=== PATIENT | female | born 1945 | race Caucasian/White ===

== ENCOUNTER → 2019-02-21 15:52 | Outpatient (CLI) | payer MEDICARE, SELFPAY ==
[2019-02-21 16:53] LABS: Add Manual Diff / Slide Review NO; Basophils Absolute Auto 0 /uL (0-100); Basophils Percent Auto 0.6 % (0-2); Eosinophils Absolute Auto 100 /uL (0-450); Eosinophils Percent Auto 0.7 % (2-4); Hematocrit 39.5 % (36-46); Hemoglobin 13.2 g/dL (12.0-16.0); Lymphocytes Absolute Auto 2200 /uL (1100-4500); Lymphocytes Percent Auto 29.6 % (25-40); Mean Corpuscular HGB Conc 33.5 % (30-36); Mean Corpuscular Hemoglobin 30.6 PG (26-34); Mean Corpuscular Volume 91.4 fL (80-100); Monocytes Absolute Auto 400 /uL (0-900); Monocytes Percent Auto 5.3 % (3-14); Neutrophils Absolute Auto 4600 /uL (1500-7000); Neutrophils Percent Auto 63.8 % (50-75); Platelet Count 200 X10^3/uL (150-400); Red Blood Cell Count 4.32 X10^6/uL (4.0-5.2); Red Cell Distribution Width 13.4 % (11.6-14.8); White Blood Cell Count 7.3 X10^3/uL (4.5-11.0)
[2019-02-21 17:27] LABS: Alanine Aminotransferase 24 IU/L (9-52); Albumin 4.4 g/dL (3.5-5.0); Albumin Globulin Ratio 1.6 (1.0-2.8); Alkaline Phosphatase 67 U/L (38-126); Aspartate Aminotransferase 27 IU/L (14-36); Bilirubin Total 0.4 mg/dL (0.2-1.3); Bilirubin Unconjugated 0.3 mg/dL (0.0-1.1); Globulin 2.7 g/dL (1.7-4.1); HEMOLYSIS < 15 (0-50); Total Protein 7.1 g/dL (6.3-8.2)
== END ==
PROVIDERS: Visit Provider Podiatrist
DX: B35.1 Tinea unguium (principal)
CPT/HCPCS: 36415; 80076; 85025

== ENCOUNTER 2024-12-31 14:56 | Emergency (ER) | payer MEDICARE, SELFPAY ==
[2024-12-31] VITALS (10 sets, daily range): BP systolic 106–134; BP diastolic 55–63; PULSE 66–74; RESP 16; TEMP 36.6–36.9; O2SAT 92–96; BMI 28.3
[2024-12-31 15:18] LABS: Appearance Urine UA CLOUDY
[2024-12-31 15:19] LABS: Color Urine UA ORANGE
[2024-12-31 15:23] LABS: Culture Indicated Urine Specimen Cultured
--- NOTE | 2024-12-31 15:25 | ED.FEMALEGU ---
HPI - Female Genitourinary General Chief complaint: Urogenital-Female Stated complaint: fever, UTI Time Seen by Provider: 12/31/24 15:04 History of Present Illness HPI Narrative: 79-year-old female with urinary symptoms that have been going on for 2+ weeks. Patient was told to come in by her PCP. The patient was initiated on Bactrim initially without any urine sample. The Bactrim was mixed with her allergy pills and so the timing of the medication was inaccurate. She then had a urine sample done which did show an E coli picture but is still waiting on the full culture. She was then started on cefdinir and has been on it for the last 2-3 days. Currently the patient feels some chills but has no urinary symptoms and no other symptoms. Related Data Home Medications ?Medication ?Instructions ?Recorded ?Confirmed estradiol 10 mcg vaginal tablet 10 mcg vaginal .COMPLEX 11/09/19 01/17/20 (Yuvafem) levothyroxine 50 mcg tablet 50 mcg PO DAILY 11/09/19 01/17/20 (Levoxyl) raloxifene 60 mg tablet 60 mg PO DAILY 11/09/19 01/17/20 rosuvastatin 5 mg tablet 5 mg PO DAILY 11/09/19 01/17/20 sertraline 100 mg tablet (Zoloft) 100 mg PO DAILY 11/09/19 01/17/20 valacyclovir 500 mg tablet See Rx Instructions PO DAILY 11/09/19 01/17/20 zolpidem 10 mg tablet (Ambien) 10 mg PO BEDTIME PRN insomnia 11/09/19 01/17/20 aspirin 81 mg tablet,delayed 81 mg PO DAILY 11/20/19 01/17/20 release docusate sodium 250 mg capsule 500 mg PO BEDTIME 01/17/20 01/17/20 esomeprazole magnesium 20 mg 20 mg PO BID 01/17/20 01/17/20 capsule,delayed release (Nexium) primidone 50 mg tablet 50 mg PO BID 01/17/20 01/17/20 vit C 250 mg-vit E 90 mg-zinc 40 1 tab PO BID 01/17/20 01/17/20 mg-copper 1 [id number] capsule (PreserVision AREDS-2) Allergies Allergy/AdvReac Type Severity Reaction Status Date / Time cephalexin (From KEFLEX) Allergy Unknown Unverified 01/17/20 11:24 ciprofloxacin (From CIPRO) Allergy Unknown Unverified 01/17/20 11:24 codeine (CODEINE) Allergy Unknown Unverified 01/17/20 11:24 Review of Systems Review of Systems ROS Unobtainable: All systems reviewed & are unremarkable except as noted in HPI and below Patient History Medical History (Updated 12/31/24 @ 17:33 by Prashanth Taveras MD) Chronic pain of right thumb Shingles Seasonal allergies Teixeira esophagus Reflux esophagitis Constipation Thyroid nodule Bladder cancer (~2018) Mild coronary artery disease (~04/2015) Hyperparathyroidism Hypothyroid Hyperlipidemia UTI (urinary tract infection) Surgical History (Updated 11/20/19 @ 11:42 by June Garibay DO) History of bunionectomy History of parathyroidectomy (~2010) Family History (Updated 11/20/19 @ 11:44 by June Garibay DO) Grandmother Breast cancer Mother Breast cancer Family/Other Breast cancer Family/Other Breast cancer Exam Narrative Exam Narrative: General: Patient appears to be in no acute distress, acting appropriately Head: normocephalic, atraumatic, HEENT: Pupils equal round reactive, eyes tracking well, neck supple, no JVD Heart: regular rate and rhythm, no murmurs, rubs, or gallops heard Lungs: clear to auscultation, no adventitious sounds Abdomen: soft , nontender, nondistended, positive bowel sounds Neurological: no focal neurological signs, moving all extremities well, alert and oriented x3, Psych: good judgment ,good insight, mood is normal. Initial Vital Signs Initial Vital Signs: Vital Signs Pulse Rate 74 12/31/24 15:03 Pulse Oximetry 94 12/31/24 15:03 Course Orders Ordered: ED Orders 12/31/24 15:12 Urinalysis and Microscopic Stat Urine Culture Stat 12/31/24 15:53 Blood Culture Stat 12/31/24 15:55 BMP [Basic Metabolic Panel] Stat CBC Auto Diff [Complete Blood Count AUTO DIFF] Stat Discontinued Medications Piperacillin Sod/Tazobactam (Sod 4.5 gm/ Sodium Chloride) 100 mls @ 200 mls/hr IV NOW ONE Stop: 12/31/24 15:54 Last Infusion: 12/31/24 17:06 Dose: Infused Sodium Chloride (Normal Saline 0.9%) 1,000 mls @ 1,000 mls/hr IV BOLUS ONE Stop: 12/31/24 16:54 Last Infusion: 12/31/24 17:26 Dose: Infused Reevaluation(s) Reevaluation #1: Patient continues to be comfortable, asymptomatic. Vital Signs Vital signs: Vital Signs - 8 hr 12/31/24 15:03 12/31/24 15:08 12/31/24 15:57 Temperature 98.4 F Pulse Rate 74 73 70 Respiratory Rate 16 Blood Pressure 117/57 L Pulse Oximetry 94 94 92 Oxygen Delivery Method Room Air 12/31/24 15:58 12/31/24 15:58 12/31/24 16:00 Temperature 98.5 F Pulse Rate 69 69 Respiratory Rate Blood Pressure 120/55 L Pulse Oximetry 93 93 Oxygen Delivery Method 12/31/24 16:00 12/31/24 16:33 12/31/24 16:33 Temperature Pulse Rate 66 Respiratory Rate Blood Pressure 106/55 L 115/58 L Pulse Oximetry 92 Oxygen Delivery Method 12/31/24 17:00 12/31/24 17:00 Temperature Pulse Rate 70 Respiratory Rate Blood Pressure 110/57 L Pulse Oximetry 95 Oxygen Delivery Method MDM - Female Genitourinary Differential Diagnosis Differential diagnosis: Likely urinary tract infection, cervicitis and vaginitis Lab Data 12/31/24 15:55 12/31/24 15:55 Labs: Lab Results 12/31/24 12/31/24 Range/Units 15:12 15:55 WBC 8.3 (4.5-11.0) X10^3/uL RBC 3.38 L (4.0-5.2) X10^6/uL Hgb 11.0 L (12.0-16.0) g/dL Hct 31.8 L (36-46) % MCV 94.1 (80-100) fL MCH 32.5 (26-34) PG MCHC 34.5 (30-36) % RDW 12.4 (11.6-14.8) % Plt Count 187 (150-400) X10^3/uL Neut % (Auto) 81.6 H (50-75) % Lymph % (Auto) 7.1 L (25-40) % [place] % (Auto) 10.6 (3-14) % Eos % (Auto) 0.3 L (2-4) % Baso % (Auto) 0.4 (0-2) % Neut # (Auto) 6800 (5689-7263) /uL Lymph # (Auto) 600 L (4142-1877) /uL [place] # (Auto) 900 (0-900) /uL Eos # (Auto) 0 (0-450) /uL Baso # (Auto) 0 (0-100) /uL Sodium 134 L (137-145) mmol/L Potassium 4.1 (3.4-5.1) mmol/L Chloride 104 (98-107) mmol/L Carbon Dioxide 23 (22-32) mmol/L BUN 15 (7-17) mg/dL Creatinine 0.69 (0.52-1.04) mg/dL Estimated GFR > 60 (>60) mL/min BUN/Creatinine Ratio 21.7 (6-22) Glucose 107 H (70-99) mg/dL Calcium 8.6 (8.4-10.2) mg/dL Urine Color [place] Urine Appearance Cloudy Urine pH TNP Ur Specific [place] TNP Urine Protein TNP Urine Glucose (UA) TNP Urine Ketones TNP Urine Occult Blood TNP Urine Nitrate TNP Urine Bilirubin TNP Urine Urobilinogen TNP Ur Leukocyte Esterase TNP Urine RBC 0-1/hpf (0-5/HPF) Urine WBC 30-100/hpf H (0-5/HPF) Ur Squamous Epith Cells 5-10 /hpf H (0-5/HPF) Urine Bacteria Many (>30) H (None) Ur Culture Indicated? Specimen cultured Vol Urine Centrifuged 10ml (spun) MDM Narrative Medical decision making narrative: The patient has been asymptomatic during her course here at the ED. we will wait for urine and blood cultures and follow up on them. Patient given a dose of Zosyn here in the ED. Advised to continue with her cefdinir until cultures return. Discharge Plan Departure Patient Disposition: Home Clinical Impression: UTI (urinary tract infection) Qualifiers: Urinary tract infection type: acute cystitis Hematuria presence: without hematuria Qualified Code(s): N30.00 - Acute cystitis without hematuria Instructions: DI for Urinary Tract Infection (UTI) Activity Restrictions/Additional Instructions: Continue with cefdinir and follow up with PCP. Follow up with urine and blood cultures from here in the ED. Prescriptions: No Action levothyroxine [Levoxyl] 50 mcg tablet 50 mcg PO DAILY sertraline [Zoloft] 100 mg tablet 100 mg PO DAILY rosuvastatin 5 mg tablet 5 mg PO DAILY raloxifene 60 mg tablet 60 mg PO DAILY estradiol [Yuvafem] 10 mcg tablet 10 mcg VAG .COMPLEX Rx Instructions: 1 tab M, W, F. zolpidem [Ambien] 10 mg tablet 10 mg PO BEDTIME PRN (Reason: insomnia) valacyclovir 500 mg tablet See Rx Instructions PO DAILY Rx Instructions: Take 3 tabs as needed for shingles. PO daily; aspirin 81 mg tablet,delayed release (DR/EC) 81 mg PO DAILY primidone 50 mg tablet 50 mg PO BID Rx Instructions: 25 mg in the AM and 50 mg at bedtime docusate sodium 250 mg capsule 500 mg PO BEDTIME esomeprazole magnesium [Nexium] 20 mg capsule,delayed release(DR/EC) 20 mg PO BID PreserVision AREDS-2 [id number] [id number]-mg capsule 1 tab PO BID Rx Instructions: administer with meals Referrals: June Garibay DO [Primary Care Provider, Family Practice] Stand Alone Forms: Patient Portal/API
[2024-12-31 16:06] LABS: Add Manual Diff / Slide Review NO; Hematocrit 31.8 % (36-46); Hemoglobin 11.0 g/dL (12.0-16.0); Lymphocytes Absolute Auto 600 /uL (1100-4500); Mean Corpuscular HGB Conc 34.5 % (30-36); Mean Corpuscular Hemoglobin 32.5 PG (26-34); Mean Corpuscular Volume 94.1 fL (80-100); Platelet Count 187 X10^3/uL (150-400)
[2024-12-31 16:15] LABS: Blood Urea Nitrogen 15 mg/dL (7-17); Calcium 8.6 mg/dL (8.4-10.2); Carbon Dioxide 23 mmol/L (22-32); Chloride 104 mmol/L (98-107); Estimated Glomerular Filt Rate > 60 mL/min (>60); Glucose 107 mg/dL (70-99); HEMOLYSIS < 15 (0-50); Potassium 4.1 mmol/L (3.4-5.1); Sodium 134 mmol/L (137-145)
[2024-12-31] MEDS: PIPERACILLIN/TAZO 4.5 GM in SODIUM CHLORIDE 0.9% 100 ML IV (16:29)
[2024-12-31] MEDS: SODIUM CHLORIDE 0.9% 1,000 ML 1000 ML IV (16:30)
== END 2024-12-31 17:51 | disposition home or self-care (01) ==
PROVIDERS: Emergency Provider Family Medicine; PCP Family Medicine
DX: N30.00 Acute cystitis without hematuria (principal)
CPT/HCPCS: 80048; 81001; 85025; 87040; 87086; 96365; 99283; 99284; J2543

== ENCOUNTER 2025-01-01 11:17 | Emergency (ER) | payer MEDICARE, SELFPAY ==
[2025-01-01 11:21] VITALS: BP 152/64; PULSE 69; RESP 14; TEMP 36.4; O2SAT 96; BMI 28.3
--- NOTE | 2025-01-01 12:55 | ED_ITS ---
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 De Leon is a pleasant 79-year-old female with a past medical history of bladder cancer 6 years ago, hypothyroidism, hyperlipidemia who presents to the emergency department for IV antibiotics for outpatient gram-negative UTI since December 12. Patient was seen in the ED yesterday after being sent by her PCP for Gram-negative urine cultures not improving with oral antibiotics. She received IV Zosyn. She returns today for an additional dose of IV Zosyn while blood and urine cultures are pending. She feels well, reports chills during urination but no abdominal pain, nausea, vomiting, fevers. She initially was treated with Bactrim over 2 weeks ago without a urine culture at that time however the antibiotics were mixed up with antivirals so they were not taken exactly as directed. She was switched to cefdinir 2 or 3 days ago and is continuing to take this while also receiving IV Zosyn both yesterday and now today. She has no other concerns today. Related Data Home Medications ?Medication ?Instructions ?Recorded ?Confirmed estradiol 10 mcg vaginal tablet 10 mcg vaginal .COMPLE X 11/09/19 01/17/20 (Yuvafem) levothyroxine 50 mcg tablet 50 mcg PO DAILY 11/09/19 0 01/17/20 (Levoxyl) raloxifene 60 mg tablet 60 mg PO DAILY 11/09/1910/02 rosuvastatin 5 mg tablet 5 mg PO DAILY 11/09/1901/16 sertraline 100 mg tablet (Zoloft) 100 mg PO DAILY 10/1401/17/20 valacyclovir 500 mg tablet See Rx Instructions PO JOSEPH Y 11/09/19 01/17/20 zolpidem 10 mg tablet (Ambien) 10 mg PO BEDTIME PRN in somnia 11/09/19 01/17/20 aspirin 81 mg tablet,delayed 81 mg PO DAILY 11/20/19 0 01/17/20 release docusate sodium 250 mg capsule 500 mg PO BEDTIME 01/1601/17/20 esomeprazole magnesium 20 mg 20 mg PO BID 01/17/2010/02 capsule,delayed release (Nexium) primidone 50 mg tablet 50 mg PO BID 01/17/20 vit C 250 mg-vit E 90 mg-zinc 40 1 tab PO BID 01/17/20 01/17/20 mg-copper 1 [id number] capsule (PreserVision AREDS-2) Allergies Allergy/AdvReac Type Severity Reaction Status Date / Time ciprofloxacin (From CIPRO) Allergy Unknown Verified 01/01/25 13:57 codeine (CODEINE) Allergy Unknown Verified 01/01/25 13:57 Review of Systems Review of Systems ROS Unobtainable: All systems reviewed & are unremarkable except as noted in HPI and below Patient History Medical History Chronic pain of right thumb Shingles Seasonal allergies Teixeira esophagus Reflux esophagitis Constipation Thyroid nodule Bladder cancer (~2018) Mild coronary artery disease (~04/2015) Hyperparathyroidism Hypothyroid Hyperlipidemia UTI (urinary tract infection) Surgical History History of bunionectomy History of parathyroidectomy (~2010) Family History Grandmother Breast cancer Mother Breast cancer Family/Other Breast cancer Family/Other Breast cancer Social History Smoking Status: Never smoker Smoking Status: Never smoker Exam Narrative Exam Narrative: GENERAL: 79 year old patient appears younger than stated age. Well-developed patient, in no acute distress. HEAD: Atraumatic. Normocephalic. EYES: No scleral icterus. No injection or drainage. NECK: Trachea midline. Cervical ROM intact. CARDIOVASCULAR: Regular rate and rhythm. RESPIRATORY: ?Nonlabored respirations. ?Speaking in clear, full sentences. ?Clear to auscultation. GASTROINTESTINAL: Abdomen soft, non-tender, nondistended. BS present. NEURO: AOx3. ?Clear speech. ?Moves all 4 extremities appropriately. SKIN: No rash or erythema of visible areas Initial Vital Signs Initial Vital Signs: Vital Signs Temperature 97.5 F L 01/01/25 11:21 Pulse Rate 69 01/01/25 11:21 Respiratory Rate 14 07/20/25 11:21 Blood Pressure 152/64 H 01/01/25 11:21 Pulse Oximetry 96 01/01/25 11:21 Oxygen Delivery Method Room Air 01/01/25 11:21 Course Orders Ordered: ED Orders 01/01/25 13:26 CBC Auto Diff [Complete Blood Count AUTO DIFF] Stat CMP [Comprehensive Metabolic Panel] Stat Discontinued Medications Piperacillin Sod/Tazobactam (Sod 4.5 gm/ Sodium Chloride) 100 mls @ 200 mls/hr IV STAT ONE Stop: 01/01/25 13:05 Last Infusion: 01/01/25 14:40 Dose: Infused Documented By: Admin: 01/01/25 14:06 Dose: 200 mls/hr Documented By: LAYNE Vital Signs Vital signs: Vital Signs - 8 hr 01/01/25 11:21 Temperature 97.5 F L Pulse Rate 69 Respiratory Rate 14 Blood Pressure 152/64 H Pulse Oximetry 96 Oxygen Delivery Method Room Air MDM - Recheck/Abnormal Lab/Rx Medical Records Attestation: I reviewed the patient's medical records. Lab Data 01/01/25 13:26 01/01/25 13:26 Labs: Lab Results 01/01/25 Range/Units 13:26 WBC 6.3 (4.5-11.0) X10^3/uL RBC 3.39 L (4.0-5.2) X10^6/uL Hgb 10.8 L (12.0-16.0) g/dL Hct 31.9 L (36-46) % MCV 94.1 (80-100) fL MCH 31.9 (26-34) PG MCHC 33.9 (30-36) % RDW 12.3 (11.6-14.8) % Plt Count 195 (150-400) X10^3/uL Neut % (Auto) 64.1 (50-75) % Lymph % (Auto) 19.5 L (25-40) % [place] % (Auto) 14.7 H (3-14) % Eos % (Auto) 1.2 L (2-4) % Baso % (Auto) 0.5 (0-2) % Neut # (Auto) 4000 (3091-7094) /uL Lymph # (Auto) 1200 (2853-0540) /uL [place] # (Auto) 900 (0-900) /uL Eos # (Auto) 100 (0-450) /uL Baso # (Auto) 0 (0-100) /uL Sodium 138 (137-145) mmol/L Potassium 3.9 (3.4-5.1) mmol/L Chloride 108 H (98-107) mmol/L Carbon Dioxide 24 (22-32) mmol/L BUN 13 (7-17) mg/dL Creatinine 0.68 (0.52-1.04) mg/dL Estimated GFR > 60 (>60) mL/min BUN/Creatinine Ratio 19.1 (6-22) Glucose 97 (70-99) mg/dL Calcium 8.8 (8.4-10.2) mg/dL Total Bilirubin 0.5 (0.2-1.3) mg/dL AST 43 H (14-36) IU/L ALT 41 H (<35) IU/L Alkaline Phosphatase 57 (38-126) U/L Total Protein 6.9 (6.3-8.2) g/dL Albumin 3.9 (3.5-5.0) g/dL Globulin 3.0 (1.7-4.1) g/dL Albumin/Globulin Ratio 1.3 (1.0-2.8) MDM Narrative Medical decision making narrative: 79-year-old female with a past medical history of bladder cancer 6 years ago, hypothyroidism, hyperlipidemia who presents to the emergency department for IV antibiotics for outpatient gram-negative UTI since December 12. Differential diagnosis includes but is not limited to antibiotic resistant UTI, bacteremia, malignancy, interstitial cystitis, etc. On exam patient is in no acute distress, nontoxic appearing, vital signs within normal limits. She is here for 2nd dose of IV Zosyn while urine and blood cultures are pending. She is feeling well, reports chills with urination but no other symptoms. Abdomen is soft and nontender. Reviewed labs from yesterday and repeat CBC CMP obtained today. Blood in urine cultures from yesterday are still pending, her urinalysis yesterday revealed urine WBCs, bacteria and squamous epithelial cells. She was treated with IV Zosyn and continued her home oral cefdinir. Labs today show a downtrending WBC count of 6.3, stable anemia with a hemoglobin of 10.8. She does have very mild elevation of her AST and ALT today at 43 and 41. Patient tolerated her antibiotic infusion well. Blood and urine cultures are still pending from yesterday. Her primary care doctor recommends continuing with both cefdinir and Bactrim at this time which she is prescribed. Discussed ED return precautions with the patient. She verbalized understanding of all information agreeable with the plan. She is stable for discharge home. Discharge Plan Departure Patient Disposition: Home Clinical Impression: Receiving intravenous antibiotic treatment as outpatient UTI (urinary tract infection) Qualifiers: Urinary tract infection type: acute cystitis Hematuria presence: without hematuria Qualified Code(s): N30.00 - Acute cystitis without hematuria Instructions: DI for Urinary Tract Infection (UTI) Activity Restrictions/Additional Instructions: Dear Ms. De Leon, Thank you for coming to the emergency department. Today you were evaluated for urinary tract infection and received your second dose of IV antibiotics, specifically 4.5gm Piperacillin/Tazobactam. At this time your urine and blood cultures are still pending. Please take the Bactrim and cefdinir as recommended by your primary care doctor. Please return to the ER immediately if you develop severe pain, inability to urinate, fever of 100.4F or higher, or any other concerns for worsening infection. Please follow up with your primary care doctor within the next 2-3 days for ER follow-up. (If you do not have a PCP you can call [phone]. ?to schedule an appointment with an [facility] Primary Care Provider) IF YOU DEVELOP ANY NEW OR WORSENING SYMPTOMS, RETURN TO THE ER! Please read the attached instructions, they highlight more specific treatments and interventions for you at home. Thank you for letting me participate in your care, Daria Mcnally PA-C Prescriptions: No Action levothyroxine [Levoxyl] 50 mcg tablet 50 mcg PO DAILY sertraline [Zoloft] 100 mg tablet 100 mg PO DAILY rosuvastatin 5 mg tablet 5 mg PO DAILY raloxifene 60 mg tablet 60 mg PO DAILY estradiol [Yuvafem] 10 mcg tablet 10 mcg VAG .COMPLEX Rx Instructions: 1 tab M, W, F. zolpidem [Ambien] 10 mg tablet 10 mg PO BEDTIME PRN (Reason: insomnia) valacyclovir 500 mg tablet See Rx Instructions PO DAILY Rx Instructions: Take 3 tabs as needed for shingles. PO daily; aspirin 81 mg tablet,delayed release (/EC) 81 mg PO DAILY primidone 50 mg tablet 50 mg PO BID Rx Instructions: 25 mg in the AM and 50 mg at bedtime docusate sodium 250 mg capsule 500 mg PO BEDTIME esomeprazole magnesium [Nexium] 20 mg capsule,delayed release(DR/EC) 20 mg PO BID PreserVision AREDS-2 [id number] xv-[id number]-[id number]-mg capsule 1 tab PO BID Rx Instructions: administer with meals Stand Alone Forms: Patient Portal/API
[2025-01-01 13:33] LABS: Add Manual Diff / Slide Review NO; Hematocrit 31.9 % (36-46); Hemoglobin 10.8 g/dL (12.0-16.0); Lymphocytes Absolute Auto 1200 /uL (1100-4500); Mean Corpuscular HGB Conc 33.9 % (30-36); Mean Corpuscular Hemoglobin 31.9 PG (26-34); Mean Corpuscular Volume 94.1 fL (80-100); Platelet Count 195 X10^3/uL (150-400)
[2025-01-01 13:46] LABS: Alanine Aminotransferase 41 IU/L (<35); Albumin 3.9 g/dL (3.5-5.0); Albumin Globulin Ratio 1.3 (1.0-2.8); Alkaline Phosphatase 57 U/L (38-126); Blood Urea Nitrogen 13 mg/dL (7-17); Calcium 8.8 mg/dL (8.4-10.2); Carbon Dioxide 24 mmol/L (22-32); Chloride 108 mmol/L (98-107); Estimated Glomerular Filt Rate > 60 mL/min (>60); Globulin 3.0 g/dL (1.7-4.1); Glucose 97 mg/dL (70-99); HEMOLYSIS < 15 (0-50); Potassium 3.9 mmol/L (3.4-5.1); Sodium 138 mmol/L (137-145); Total Protein 6.9 g/dL (6.3-8.2)
[2025-01-01] MEDS: PIPERACILLIN/TAZO 4.5 GM in SODIUM CHLORIDE 0.9% 100 ML IV (14:06)
[2025-01-01 15:19] VITALS: BP 133/62; PULSE 62; RESP 16; TEMP 36.6; O2SAT 98
== END 2025-01-01 15:18 | disposition home or self-care (01) ==
PROVIDERS: Emergency Provider Physician Assistant
DX: N30.00 Acute cystitis without hematuria (principal)
CPT/HCPCS: 80053; 85025; 96365; 99283; 99284; J2543